=== PATIENT | male | born 1960 | race Caucasian/White ===

== ENCOUNTER → 2022-07-26 | Emergency (ER) | payer BC | END | disposition left against medical advice (07) | LOC: ER 06:48 | DX: G58.9 Mononeuropathy, unspecified (principal) ==

== ENCOUNTER 2022-08-02 14:59 | Emergency (ER) | payer BC ==
[~2022-08-02] VITALS: Ht 177.8 cm; Wt 86.2 kg
[2022-08-02 15:56] LABS: BASOPHILS # (AUTO) 0.1 (0.0-0.1); BASOPHILS % 0.8 % (0.0-1.0); EOSINOPHILS # (AUTO) 0.1 (0.0-0.4); EOSINOPHILS % 0.9 % (0.0-6.0); HEMATOCRIT 53.3 % (38.2-49.6); HEMOGLOBIN 16.3 g/dL (14.0-18.0); LYMPHOCYTES # (AUTO) 2.8 (1.0-3.2); LYMPHOCYTES % 18.9 % (18.0-39.1); MEAN CORPUSCULAR HEMOGLOBIN 28.2 pg (28-32); MEAN CORPUSCULAR HGB CONC 30.6 g/dL (31-35); MEAN CORPUSCULAR VOLUME 92.2 fL (81-99); MONOCYTES # (AUTO) 1.3 (0.2-0.8); MONOCYTES % 8.9 % (4.4-11.3); NEUTROPHILS # (AUTO) 10.2 (2.1-6.9); NEUTROPHILS % 69.4 % (38.7-80.0); PLATELET COUNT 373 x10e3/uL (140-360); RED BLOOD COUNT 5.78 x10e6/uL (4.3-5.7)
[2022-08-02 16:11] LABS: ALBUMIN 3.7 g/dL (3.5-5.0); ALBUMIN/GLOBULIN RATIO 0.8 (0.8-2.0); ANION GAP 15.3 mmol/L (8-16); CALCIUM 9.7 mg/dL (8.4-10.2); CREATININE, SERUM 1.06 mg/dL (0.72-1.25); POTASSIUM 4.3 mmol/L (3.5-5.1)
[2022-08-02] MEDS ORDERED: SODIUM CHLORIDE 0.9% 100 ML ONE (17:15)
[2022-08-02] MEDS ORDERED: IOPAMIDOL 370 MG/ML 100 ML INFUS..BTL INJ ONE (17:15)
[2022-08-02 18:40] LABS: INR 0.88; PROTHROMBIN TIME 12.1 seconds (11.9-14.5)
[2022-08-02 18:41] LABS: PARTIAL THROMBOPLASTIN TIME 24.1 seconds (23.8-35.5)
[2022-08-02 18:51] LABS: CREATINE KINASE 2535 IU/L (30-200)
[2022-08-02] MEDS ORDERED: HEPARIN SOD (PORCINE) 5,000 UNIT/ML VIAL IV ONE (19:30)
[2022-08-02] MEDS ORDERED: HEPARIN 25,000 UNIT 1,400 UNIT in DEXTROSE 5% 250ML 250 ML IV SCH ×2 (19:30→19:45)
[2022-08-02] MEDS ORDERED: HEPARIN 25,000 UNIT DRIP IV ONE (20:21)
[2022-08-02 22:24] VITALS: BP 138/93
== END 2022-08-02 22:46 | disposition other institution (70) ==
LOC: ER 15:01
DX: M79.604 Pain in right leg (principal); I74.5 Embolism and thrombosis of iliac artery; E11.65 Type 2 diabetes mellitus with hyperglycemia; I10 Essential (primary) hypertension; F41.9 Anxiety disorder, unspecified; Z20.822 Contact with and (suspected) exposure to COVID-19; R94.31 Abnormal electrocardiogram [ECG] [EKG]
CPT/HCPCS: 36415; 75635; 80053; 82550; 82553; 84484; 85025; 85610; 85730; 93005; 93926; 99284; J1644; J2543; J7050; Q9967; U0002

== ENCOUNTER → 2022-08-26 | Outpatient (CLI) | payer BC | LOC: CARD 14:05 | PROVIDERS: ATTEND Nurse Practitioner Family | DX: I73.9 Peripheral vascular disease, unspecified (principal) | CPT/HCPCS: 93926 ==

== ENCOUNTER → 2022-08-30 | Outpatient (RCR) | payer BC | LOC: PT 14:49 | PROVIDERS: ATTEND Neurological Surgery | DX: M79.604 Pain in right leg (principal) ==

== ENCOUNTER 2022-09-05 10:42 | Outpatient (RCR) | payer BC | END 2022-09-30 | LOC: PT 10:42 | PROVIDERS: ATTEND Neurological Surgery | DX: M79.604 Pain in right leg (principal) ==